=== PATIENT | female | born 1960 | race Two or more races ===

== ENCOUNTER 2019-05-27 09:00 | Day surgery (SDC) | payer BC ==
[~2019-05-27 09:00] MED LIST: Lactated Ringers 1,000 ML IV SCH
[2019-05-27] MEDS ORDERED: Ketorolac 30 MG/ML SDV IVPUSH ONE (09:01)
[2019-05-27] MEDS ORDERED: Propofol 200 MG/20 ML SDV IV ONE (09:01)
[2019-05-27] MEDS ORDERED: Midazolam 1 MG/ML 2 ML SDV IV ONE (09:01)
[2019-05-27] MEDS ORDERED: Ondansetron 4 MG/2 ML SDV IVPUSH ONE (09:01)
--- NOTE | 2019-05-27 10:18 | PCM.OPNOTE ---
- General Post-Op/Procedure Note Date of Surgery/Procedure: 05/27/19 Operative Procedure(s): c scope Findings: nl exam Pre Op Diagnosis: colon cancer screening Post-Op Diagnosis: Same Anesthesia Technique: MAC Primary Surgeon: Win Dwyer Anesthesia Provider: Naomi Stevens Pathology: none Complications: None Condition: Good Free Text/Narrative:: see dictation [id number]
--- NOTE | 2019-05-27 12:36 | OR ---
DATE OF OPERATION: 05/27/2019 SURGEON: Win Dwyer MD PROCEDURE PERFORMED: Colonoscopy. PREOPERATIVE DIAGNOSIS: Need for colon cancer screening. POSTOPERATIVE DIAGNOSIS: Normal exam. INDICATIONS FOR PROCEDURE: This is a 58-year-old female, who presents for screening colonoscopy. She was offered and accepted colonoscopy. DESCRIPTION OF OPERATION: After an excellent IV sedation was administered, digital rectal exam was performed. No marked abnormality was noted. Flexible colonoscope was inserted and advanced to the cecum. Prep was excellent. Following findings were noted. Ascending colon, unremarkable. Transverse colon, unremarkable. Descending colon, unremarkable. Sigmoid and rectum, unremarkable. Colon was deflated as the scope was removed. The patient tolerated the procedure well and was taken to the recovery room in good condition. RECOMMENDATIONS: Repeat colonoscopy in 10 years. /[id number] /MODL
== END 2019-05-27 11:01 | disposition home or self-care (01) ==
LOC: FB.SDS 09:00
PROVIDERS: ATTEND Surgery
DX: Z12.11 Encounter for screening for malignant neoplasm of colon (principal)
CPT/HCPCS: 45378; J1885; J2250; J2405; J2704; J7120